=== PATIENT | female | born 1995 | race Caucasian/White ===

== ENCOUNTER → 2021-02-13 | Outpatient (REF) | payer OTHER | LOC: M LAB REF 20:09 | PROVIDERS: ATTEND Physician Assistant | DX: J02.9 Acute pharyngitis, unspecified (principal) ==

== ENCOUNTER 2021-03-16 12:07 | Emergency (ER) | payer OTHER ==
[~2021-03-16] VITALS: Ht 160 cm; Wt 86.4 kg
[2021-03-16 12:39] VITALS: BP 123/59
[2021-03-16] MEDS ORDERED: KETOROLAC 30 MG/ML 1ML VIAL IV ONE (13:05)
[2021-03-16] MEDS ORDERED: NS 1,000 ML IV ONE (13:05)
[2021-03-16] MEDS ORDERED: methylPREDNISolone 125MG 2ML VIAL IV ONE (13:05)
[2021-03-16] MEDS ORDERED: ONDANSETRON 4MG/2ML VIAL IV ONE (13:05)
[2021-03-16] MEDS: ALBUTEROL 90 MCG/ACT 8GM HFA INHALER INH SCH (13:44)
--- NOTE | 2021-03-16 14:08 | REP ---
INDICATION: DYSPNEA/COUGH. COMPARISON: None. TECHNIQUE: Single portable AP view of the chest was performed. FINDINGS: There is no acute infiltrate or pulmonary edema. Lungs are clear. The heart is not significantly enlarged. The mediastinal silhouette is unremarkable. The visualized osseous structures are intact. IMPRESSION: No acute pulmonary disease. <Electronically signed by Damián Woodard > 03/16/21 [id number]
[2021-03-16 14:53] LABS: BASO # 0.1 10^3/uL (0.0-0.2); BASO % 0.5 % (0.0-1.0); EOS # 0.1 10^3/uL (0.0-0.5); EOS % 0.7 % (0.0-3.0); HEMATOCRIT 37.1 % (36.0-47.0); HEMOGLOBIN 11.7 g/dl (12.0-15.5); LYMPH # 0.5 10^3/uL (1.5-5.0); LYMPH % 5.1 % (24.0-44.0); MEAN CORPUSCULAR HEMOGLOBIN 25.8 pg (27.0-33.0); MEAN CORPUSCULAR HGB CONC 31.5 g/dl (32.0-36.5); MEAN CORPUSCULAR VOLUME 81.9 fl (80.0-96.0); MONO # 0.9 10^3/uL (0.0-0.8); MONO % 8.6 % (2.0-8.0); NEUTROPHILS # 8.6 10^3/uL (1.5-8.5); NEUTROPHILS % 84.8 % (36.0-66.0); PLATELET COUNT, AUTOMATED 296 10^3/uL (150-450); RED BLOOD COUNT 4.53 10^6/uL (4.00-5.40); WHITE BLOOD COUNT 10.1 10^3/uL (4.0-10.0)
[2021-03-16 15:03] LABS: INR 0.99; PROTHROMBIN TIME 13.5 SECONDS (12.7-14.5)
[2021-03-16 15:05] LABS: D-DIMER QUANT 345.43 ng/ml (<500)
[2021-03-16 15:22] LABS: ALBUMIN 3.5 GM/DL (3.2-5.2); ALT/SGPT 20 U/L (12-78); BILIRUBIN,DIRECT 0.1 MG/DL (0.0-0.2); BILIRUBIN,TOTAL 0.3 MG/DL (0.2-1.0); BLOOD UREA NITROGEN 7 MG/DL (7-18); CALCIUM LEVEL 9.4 MG/DL (8.5-10.1); CARBON DIOXIDE LEVEL 23 MEQ/L (21-32); CHLORIDE LEVEL 105 MEQ/L (98-107); CREATININE FOR GFR 0.62 MG/DL (0.55-1.30); GLOMERULAR FILTRATION RATE > 60.0 (>60); GLUCOSE, FASTING 100 MG/DL (70-100); POTASSIUM SERUM 3.9 MEQ/L (3.5-5.1); SODIUM LEVEL 138 MEQ/L (136-145); TOTAL PROTEIN 6.6 GM/DL (6.4-8.2)
[2021-03-16] MEDS ORDERED: ISOVUE-370 76% 100ML VIAL As Ordered ONE (15:23)
--- NOTE | 2021-03-16 16:12 | REP ---
INDICATION: RLQ tender, fever. COMPARISON: None. TECHNIQUE: Standard helical technique after the intravenous administration of 100 cc Isovue 370. FINDINGS: The lung bases are clear. The liver, gallbladder, spleen, pancreas, adrenal glands, and kidneys are within normal limits. The abdominal aorta and para-aortic regions are within normal limits. The bowel loops and the mesenteries are within normal limits. The appendix is well visualized and is unremarkable. There is no free fluid or free air. There is a round 3 cm sized cyst in the left hemipelvis which is likely of ovarian origin. Bone window technique throughout the examination shows the osseous structures to be within normal limits. IMPRESSION: Likely left ovarian cyst as described above. The examination is otherwise unremarkable. <Electronically signed by Simon Rico > 03/16/21 [id number]
[2021-03-16 16:31] LABS: VENOUS BASE EXCESS -2.7 (-2.0-2.0); VENOUS HCO3 22.2 MEQ/L (23.0-27.0); VENOUS O2 SATURATION 90.1 % (60.0-80.0); VENOUS PARTIAL PRESSURE CO2 39.1 mmHg (38.0-50.0); VENOUS PARTIAL PRESSURE O2 58.6 mmHg (30.0-50.0); VENOUS PH 7.372 UNITS (7.330-7.430); VENOUS TOTAL CO2 23.4 MEQ/L (24.0-28.0)
[2021-03-16] MEDS ORDERED: TESS100C PO (16:35)
[2021-03-16] MEDS ORDERED: PROAAER10 INH (16:35)
--- NOTE | 2021-03-16 20:34 | ECGEPIP ---
[facility] - ED Test Date: 2021-03-16 Pat Name: EDWARDO DOLAN Department: Room: - Gender: Female [employer]: : 1995 Requested By: IVANA Fofana PA-C Order Number: [id number] Reading MD: Vinay Thomason Measurements Intervals [place] Rate: 101 P: 118 CT: 122 QRS: 103 QRSD: 90 T: 135 QT: 330 QTc: 427 Interpretive Statements Sinus tachycardia POOR R WAVE PROGRESSION Lateral infarct , age undetermined NO PRIORS FOR COMPARISON Electronically Signed on 03-16-2021 20:34:04 EST by Vinay Thomason
== END 2021-03-16 17:45 | disposition home or self-care (01) ==
LOC: M ED 12:07 → EDBD 12:07 → M ED 17:45
DX: J09.X9 Influenza due to identified novel influenza A virus with other manifestations (principal); R50.9 Fever, unspecified; R05.9 Cough, unspecified; N83.202 Unspecified ovarian cyst, left side; R00.0 Tachycardia, unspecified
CPT/HCPCS: 71045; 74177; 80047; 80048; 80076; 82803; 83605; 84484; 84702; 85025; 85379; 85610; 87040; 87798; 93005; 94760; 96361; 96374; 96375; 99284; J1885; J2405; J2930; Q9967

== ENCOUNTER → 2021-03-22 | Outpatient (REF) ==
[~2021-03-22] MED LIST: PROAAER10 INH; TESS100C PO
[2021-03-22 16:06] LABS: RSV AMPLIFICATION NEGATIVE (NEGATIVE)
== END ==
LOC: M LABSMTC 12:22
PROVIDERS: ATTEND Family Medicine
DX: Z20.822 Contact with and (suspected) exposure to COVID-19 (principal)

== ENCOUNTER → 2021-03-27 | Outpatient (REF) | LOC: M LABSMTC 13:30 | PROVIDERS: ATTEND Family Medicine | DX: Z20.822 Contact with and (suspected) exposure to COVID-19 (principal) ==

== ENCOUNTER 2023-03-24 10:08 | Emergency (ER) | payer OTHER ==
[~2023-03-24] VITALS: Ht 160 cm; Wt 89.2 kg
[~2023-03-24 10:08] MED LIST changes: -SERT-141 PO; -XENI120C23 PO
[2023-03-24 10:10] VITALS: BP 136/94; TEMP 98.2; O2SAT 98
[2023-03-24] MEDS ORDERED: SERT-141 PO (10:22)
[2023-03-24] MEDS ORDERED: XENI120C23 PO (10:22)
== END 2023-03-24 13:05 | disposition left against medical advice (07) ==
LOC: M ED 10:08
DX: Z53.21 Procedure and treatment not carried out due to patient leaving prior to being seen by health care provider (principal)

== ENCOUNTER → 2023-03-24 | Outpatient (REF) | payer OTHER ==
[~2023-03-24] MED LIST changes: +SERT-141 PO; +XENI120C23 PO
== END ==
LOC: M LAB REF 18:02
PROVIDERS: ATTEND Registered Nurse
DX: N39.0 Urinary tract infection, site not specified (principal)

== ENCOUNTER → 2023-05-20 | Outpatient (REF) | payer OTHER ==
[~2023-05-20] MED LIST changes: +SERT-141 PO; +XENI120C23 PO
== END ==
LOC: M LAB REF 12:17
PROVIDERS: ATTEND Nurse Practitioner Family
DX: R30.0 Dysuria (principal)

== ENCOUNTER 2024-11-10 19:35 | Emergency (ER) | payer OTHER ==
[~2024-11-10] VITALS: Ht 154.9 cm; Wt 104.1 kg
[2024-11-10 19:36] VITALS: BP 162/101; TEMP 97.6; O2SAT 98
== END 2024-11-10 20:11 | disposition left against medical advice (07) ==
LOC: M ED 19:35
DX: Z53.21 Procedure and treatment not carried out due to patient leaving prior to being seen by health care provider (principal)